=== PATIENT | male | born 1995 | race Caucasian/White ===

== ENCOUNTER 2020-03-09 10:44 | Emergency (ER) | payer OTHER ==
[~2020-03-09] VITALS: Ht 195.6 cm; Wt 77.3 kg
[2020-03-09 12:42] VITALS: BP 123/76
== END 2020-03-09 12:44 | disposition home or self-care (01) ==
LOC: ER 10:45
DX: S29.011A Strain of muscle and tendon of front wall of thorax, initial encounter (principal); S29.012A Strain of muscle and tendon of back wall of thorax, initial encounter; Z91.011 Allergy to milk products; V98.8XXA Other specified transport accidents, initial encounter; Y93.89 Activity, other specified; Y92.488 Other paved roadways as the place of occurrence of the external cause; Y99.8 Other external cause status
CPT/HCPCS: 71045; 99283